=== PATIENT | male | born 1955 | race Caucasian/White ===

== ENCOUNTER 2020-12-12 15:04 | Emergency (ER) | payer BC, MEDICARE, OTHER ==
[~2020-12-12] VITALS: Ht 182.9 cm; Wt 56.7 kg
[2020-12-12] MEDS ORDERED: SODIUM CHLORIDE 0.9% 1000ML 500 ML IV SCH (16:15)
[2020-12-12 17:06] LABS: CREATINE KINASE 79 IU/L (30-200)
[2020-12-12 18:58] VITALS: BP 133/75
== END 2020-12-12 19:02 | disposition home or self-care (01) ==
LOC: FSED 16:05
DX: G20 Parkinson's disease (principal); L89.159 Pressure ulcer of sacral region, unspecified stage; R53.1 Weakness; R94.31 Abnormal electrocardiogram [ECG] [EKG]
CPT/HCPCS: 36415; 70450; 72220; 80053; 82550; 82553; 84484; 85025; 93005; 99283

== ENCOUNTER 2020-12-19 14:57 | Outpatient (RCR) | payer MEDICARE, OTHER | END 2020-12-20 | LOC: WCC 14:57 | PROVIDERS: ATTEND Family Medicine Adult Medicine | DX: L89.152 Pressure ulcer of sacral region, stage 2 (principal); L89.159 Pressure ulcer of sacral region, unspecified stage; I73.9 Peripheral vascular disease, unspecified; S90.822A Blister (nonthermal), left foot, initial encounter; G20 Parkinson's disease; M17.12 Unilateral primary osteoarthritis, left knee; R53.1 Weakness; R26.2 Difficulty in walking, not elsewhere classified; Z74.01 Bed confinement status ==

== ENCOUNTER 2021-01-16 13:39 | Outpatient (RCR) | payer MEDICARE, OTHER ==
[~2021-01-16 13:39] MED LIST: LIDOCAINE VISC 2% SOLN 15 ML UDC ONE; LIDOCAINE/PRILOCAINE 2.5-2.5% KIT ONE; TRIAMCINOLONE ACET 0.1% CREAM 15 GM TUBE ONE; TRYPSIN/BALSAM PERU/CASTOR OIL ONE
== END 2021-01-20 ==
LOC: WCC 13:39
PROVIDERS: ATTEND Family Medicine Adult Medicine
DX: L89.152 Pressure ulcer of sacral region, stage 2 (principal); L89.159 Pressure ulcer of sacral region, unspecified stage; G20 Parkinson's disease; I73.9 Peripheral vascular disease, unspecified; S90.822A Blister (nonthermal), left foot, initial encounter; M17.12 Unilateral primary osteoarthritis, left knee; R53.1 Weakness; R26.2 Difficulty in walking, not elsewhere classified; Z74.01 Bed confinement status

== ENCOUNTER 2021-01-30 13:02 | Outpatient (RCR) | payer MEDICARE, OTHER | END 2021-02-19 | LOC: WCC 13:02 | PROVIDERS: ATTEND Family Medicine Adult Medicine | DX: L89.156 Pressure-induced deep tissue damage of sacral region (principal); L89.159 Pressure ulcer of sacral region, unspecified stage; I73.9 Peripheral vascular disease, unspecified; G20 Parkinson's disease; L23.9 Allergic contact dermatitis, unspecified cause; M17.12 Unilateral primary osteoarthritis, left knee; R53.1 Weakness; R26.2 Difficulty in walking, not elsewhere classified; Z74.01 Bed confinement status ==